=== PATIENT | female | born 2000 | race Two or more races ===

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

== ENCOUNTER 2022-08-22 18:44 | Emergency (ER) | payer OTHER ==
[~2022-08-22] VITALS: Ht 154.9 cm; Wt 53.1 kg
== END 2022-08-22 21:08 | disposition home or self-care (01) ==
LOC: ER 18:44 → EMR PED 18:47
DX: S09.8XXA Other specified injuries of head, initial encounter (principal); W22.8XXA Striking against or struck by other objects, initial encounter; Y93.89 Activity, other specified; Y92.89 Other specified places as the place of occurrence of the external cause

== ENCOUNTER 2022-09-26 12:45 | Emergency (ER) | payer OTHER ==
[~2022-09-26] VITALS: Ht 157.5 cm; Wt 59.0 kg
== END 2022-09-26 18:42 | disposition home or self-care (01) ==
LOC: ER 12:45
DX: O20.8 Other hemorrhage in early pregnancy (principal)

== ENCOUNTER 2024-11-12 13:27 | Emergency (ER) | payer OTHER ==
[~2024-11-12] VITALS: Ht 154.9 cm; Wt 54.4 kg
[2024-11-12 15:18] LABS: URINE APPEARANCE Clear; URINE BILIRRUBIN Negative (NEGATIVE); URINE BLOOD Negative; URINE COLOR Dark Yellow; URINE GLUCOSE Negative (NEGATIVE); URINE KETONE Trace (NEGATIVE); URINE LEUKOCYTE Trace; URINE NITRATE Negative; URINE PROTEIN 30 (NEGATIVE); URINE UROBILINOGEN 1.0 E.U./dl
[2024-11-12 15:21] LABS: URINE BACTERIA 796.8 uL (0.0-1933); URINE CAST 1.46 uL (0.0-1.40); URINE EPITHELIAL CELLS 72.4 uL (0.0-38.8); URINE RBC 15.1 uL (0.0-20.8); URINE WBC 43.3 uL (0.0-23.2)
[2024-11-12 15:36] LABS: TYPE CELLS SQUAMOUS; URINE MUCUS MODERATE
== END 2024-11-12 15:46 | disposition home or self-care (01) ==
LOC: ER 13:27
PROVIDERS: General Practice
DX: R30.0 Dysuria (principal)